=== PATIENT | male | born 1960 | race Two or more races ===

== ENCOUNTER 2022-12-16 12:23 | Emergency (ER) | payer MEDICAID ==
[~2022-12-16] VITALS: Ht 167.6 cm; Wt 86.0 kg
[2022-12-16 14:24] VITALS: BP 139/92
[2022-12-16] MEDS ORDERED: LIDOCAINE 1% HCL (LOCAL ANESTH.) INJ 20ML MDV IJ ONE (15:00)
[2022-12-16] MEDS ORDERED: BACDST PO (15:30)
[2022-12-16] MEDS ORDERED: IBUP800T27 PO (15:30)
== END 2022-12-16 15:37 | disposition home or self-care (01) ==
LOC: ER 12:23
DX: L02.212 Cutaneous abscess of back [any part, except buttock and flank] (principal)
CPT/HCPCS: 10060; 87205; 99283; J2001

== ENCOUNTER 2023-01-04 08:56 | Emergency (ER) | payer MEDICAID ==
[~2023-01-04] VITALS: Ht 165.1 cm; Wt 85.3 kg
[~2023-01-04 08:56] MED LIST: BACDST PO; IBUP800T27 PO
[2023-01-04 10:47] VITALS: BP 130/79
[2023-01-04] MEDS ORDERED: CEPH-510 PO (11:07)
== END 2023-01-04 11:21 | disposition home or self-care (01) ==
LOC: ER 08:56
DX: L02.212 Cutaneous abscess of back [any part, except buttock and flank] (principal); I10 Essential (primary) hypertension
CPT/HCPCS: 10060

== ENCOUNTER 2024-03-05 11:08 | Emergency (ER) | payer OTHER ==
[~2024-03-05] VITALS: Ht 170.2 cm; Wt 83.0 kg
[~2024-03-05 11:08] MED LIST changes: +CEPH-510 PO; +IBUP-1456 PO; -IBUP800T27 PO
[2024-03-05 11:56] VITALS: BP 117/89; PULSE 84; RESP 18; TEMP 97.8; O2SAT 94
== END 2024-03-05 12:36 | disposition home or self-care (01) ==
LOC: ER 11:08
DX: H61.22 Impacted cerumen, left ear (principal); M19.90 Unspecified osteoarthritis, unspecified site; Z79.899 Other long term (current) drug therapy
CPT/HCPCS: 69210